=== PATIENT | male | born 1985 | race Two or more races ===

== ENCOUNTER → 2024-10-19 | Outpatient (CLI) | payer BC, MEDICAID, SELFPAY ==
--- NOTE | 2024-10-19 08:45 | XR_ITS ---
Exam: MRI knee without contrast, right complete Date and time of exam: October 19, 2024 0937 hrs. Indications: Knee pain beginning one year ago Technique: Multiple axial, coronal, and sagittal sections on the knee have been obtained. T2-Weighted sagittal, fat-suppressed images, TR 3,500, TE 62, T2 weighted coronal fat-saturated images, TR 3,500, TE 62 Proton density sagittal sections, TR 1800, TE 31. T-1 weighted coronal images, TR 524, TE 13.0 Findings: Medial meniscus anterior horn intact. Medial meniscus, body oblique linear tear outer one half body the medial meniscus, communicating inferior articular surface. Posterior horn medial meniscus large horizontal linear tear communicating inferior articular surface near the inner margin. Lateral meniscus anterior horn is intact Lateral meniscus, body is intact Posterior horn lateral meniscus is intact Anterior cruciate ligament mildly attenuated Posterior cruciate ligament appears intact. Knee effusion is small. Quadriceps and patellar tendons appear intact. There is no evidence of tendinosis. Inflammatory change or fracture of Hoffa's fat pad is not seen. Medial patellar facet demonstrates mild thinning. Lateral patellar facet cartilage demonstrates mild thinning. Trochlear cartilage demonstrates mild thinning. Marrow signal adequate. Medial collateral ligament appears intact. Meniscocapsular separation body the medial meniscus Illiotibial band and fibular collateral ligament are intact. Biceps femoris tendons appear intact. Medial femoral condylar articular cartilage demonstrates mild thinning. Lateral femoral condylar articular cartilage demonstratesmild thinning. Tibial plateau cartilage demonstrates mild thinning. Impression: Tears of the body and posterior horn medial meniscus Mild attenuation anterior cruciate ligament. Meniscocapsular separation body medial meniscus.
== END | disposition home or self-care (01) ==
PROVIDERS: Referring Provider Nurse Practitioner Primary Care; Visit Provider Nurse Practitioner Primary Care
DX: S83.411A Sprain of medial collateral ligament of right knee, initial encounter (principal); S83.241A Other tear of medial meniscus, current injury, right knee, initial encounter; X58.XXXA Exposure to other specified factors, initial encounter
CPT/HCPCS: 73721